=== PATIENT | male | born 1990 | race African-American/Black ===

== ENCOUNTER 2016-09-27 19:01 | Emergency (ER) | payer OTHER ==
[~2016-09-27] VITALS: Ht 185.4 cm; Wt 116.0 kg
[~2016-09-27 19:01] MED LIST: PERM5CRE TOP; Z.0.NO CURRENT MEDS
[2016-09-27 19:03] VITALS: BP_SYST 135; BP_DIAS 7; BP_DIAS 97; PULSE 87; RESP 16; TEMP 98.6; O2SAT 99
[2016-09-27] MEDS ORDERED: PRED1 PO (19:07)
[2016-09-27 21:50] LABS: AUTOMATED NEUTROPHIL # 3.5 TH/MM3 (1.8-7.7); BASOPHIL # 0.1 TH/MM3 (0-0.2); BASOPHIL % 1.2 % (0.0-2.0); EOSINOPHIL # 0.5 TH/MM3 (0-0.4); HEMATOCRIT 43.5 % (39.0-51.0); HEMO FLAGS DIFF FINAL; LYMPH % 38.2 % (9.0-44.0); LYMPHOCYTE # 2.9 TH/MM3 (1.0-4.8); MEAN CELL VOLUME 92.9 FL (80.0-100.0); MEAN CORPUSCULAR HEMOGLOBIN 31.8 PG (27.0-34.0); MEAN CORPUSCULAR HGB CONC 34.2 % (32.0-36.0); MONO % 7.4 % (0.0-8.0); NEUT % 46.2 % (16.0-70.0); PLATELET COUNT 225 TH/MM3 (150-450); RED BLOOD COUNT 4.68 MIL/MM3 (4.50-5.90); RED CELL DISTRIBUTION WIDTH 12.6 % (11.6-17.2); WHITE BLOOD COUNT 7.6 TH/MM3 (4.0-11.0)
[2016-09-27 22:07] LABS: ALT (GPT) 27 U/L (12-78)
[2016-09-27 22:10] LABS: ALKALINE PHOSPHATASE 99 U/L (45-117); TOTAL BILIRUBIN ADULT 0.4 MG/DL (0.2-1.0)
[2016-09-27 22:13] LABS: ANION GAP 8 MEQ/L (5-15); AST (GOT) 26 U/L (15-37); BICARBONATE 25.4 MEQ/L (21.0-32.0); BLOOD UREA NITROGEN 17 MG/DL (7-18); CHLORIDE 106 MEQ/L (98-107); GLOMERULAR FILTRATION RATE 66 ML/MIN (>89); POTASSIUM 4.5 MEQ/L (3.5-5.1); SODIUM (NA) 139 MEQ/L (136-145)
--- NOTE | 2016-09-27 22:34 | PD ---
HPI Chief Complaint: GI Complaint Time Seen by Provider: 20:49 Travel History International Travel<30 days: No Contact w/Intl Traveler<30days: No Traveled to known affect area: No History of Present Illness HPI Patient is a 26-year-old male who comes in complaining of blood in his stool. He says he has had problems with this since high school, for about 8 years. He was seen by a entry level business analyst at one point and had an EGD done that was negative. He was told he was taking too much ibuprofen. He says that his boss told him to come to the emergency department because yesterday when he saw some blood in the stool this made him feel lightheaded. He also complains of years of panic attacks. He has no acute symptoms. He is not having any shortness of breath or chest pain. He does not have any abdominal pain. He denies nausea or vomiting. PFSH Past Medical History Medical History: Denies Significant Hx Cancer: No Diabetes: No Diminished Hearing: No Glaucoma: No Hepatitis: No Hiatal Hernia: No Hypertension: No Immunizations Current: Yes ([facility] STATES RECORDS ARE AT THE HEALTH DEPARTMENT) Thyroid Disease: No Tetanus Vaccination: Unknown Influenza Vaccination: No Past Surgical History Abdominal Surgery: No Cardiac Surgery: No Ear Surgery: No Endocrine Surgery: No Eye Surgery: No Genitourinary Surgery: No Gynecologic Surgery: No Oral Surgery: No Pacemaker: No Thoracic Surgery: No Other Surgery: Yes (HAND SURGERY) Social History Alcohol Use: No Tobacco Use: No Substance Use: No Allergies-Medications (Allergen,Severity, Reaction): Coded Allergies: No Known Allergies (Verified , 09/27/16) Reported Meds & Prescriptions Reported Meds & Active Scripts Active Reported Prednisone 1 Mg Tab 1 Mg PO DAILY Review of Systems Except as stated in HPI: all other systems reviewed are Neg General / Constitutional: No: Fever, Chills Eyes: No: Blurred Vision HENT: No: Headaches Cardiovascular: No: Chest Pain or Discomfort, Palpitations Respiratory: No: Shortness of Breath Gastrointestinal: No: Nausea, Vomiting, Abdominal Pain Skin: No Rash, No Change in Pigmentation Neurologic: No: Weakness, Dizziness Physical Exam Narrative GENERAL: Awake and alert, in no acute distress. SKIN: Focused skin assessment warm/dry. HEAD: Atraumatic. Normocephalic. EYES: Pupils equal and round. No scleral icterus. No conjunctival pallor. ENT: Mucous membranes pink and moist. NECK: Trachea midline. No JVD. CARDIOVASCULAR: Regular rate and rhythm. No murmur appreciated. RESPIRATORY: No accessory muscle use. Clear to auscultation. Breath sounds equal bilaterally. GASTROINTESTINAL: Abdomen soft, non-tender, nondistended. Rectal: Performed in the presence of the nurse. No hemorrhoids. Brown stool, no blood. No tenderness to palpation of the rectum. MUSCULOSKELETAL: No obvious deformities. No clubbing. No cyanosis. No edema. NEUROLOGICAL: Awake and alert. No obvious cranial nerve deficits. Motor grossly within normal limits. Normal speech. PSYCHIATRIC: Appropriate mood and affect; insight and judgment normal. Data Data Last Documented VS Vital Signs Date Time Temp Pulse Resp B/P Pulse Ox O2 Delivery O2 Flow Rate FiO2 09/27/16 19:09 16 09/27/16 19:03 98.6 87 135/97 99 Orders Complete Blood Count With Diff (09/27/16 21:06) Comprehensive Metabolic Panel (09/27/16 21:06) Labs Laboratory Tests Test 09/27/16 21:30 White Blood Count 7.6 TH/MM3 Red Blood Count 4.68 MIL/MM3 Hemoglobin 14.9 GM/DL Hematocrit 43.5 % Mean Corpuscular Volume 92.9 FL Mean Corpuscular Hemoglobin 31.8 PG Mean Corpuscular Hemoglobin 34.2 % Concent Red Cell Distribution Width 12.6 % Platelet Count 225 TH/MM3 Mean Platelet Volume 7.8 FL Neutrophils (%) (Auto) 46.2 % Lymphocytes (%) (Auto) 38.2 % Monocytes (%) (Auto) 7.4 % Eosinophils (%) (Auto) 7.0 % Basophils (%) (Auto) 1.2 % Neutrophils # (Auto) 3.5 TH/MM3 Lymphocytes # (Auto) 2.9 TH/MM3 Monocytes # (Auto) 0.6 TH/MM3 Eosinophils # (Auto) 0.5 TH/MM3 Basophils # (Auto) 0.1 TH/MM3 CBC Comment DIFF FINAL Differential Comment Sodium Level 139 MEQ/L Potassium Level 4.5 MEQ/L Chloride Level 106 MEQ/L Carbon Dioxide Level 25.4 MEQ/L Anion Gap 8 MEQ/L Blood Urea Nitrogen 17 MG/DL Creatinine 1.56 MG/DL Estimat Glomerular Filtration 66 ML/MIN Rate Random Glucose 93 MG/DL Calcium Level 8.8 MG/DL Total Bilirubin 0.4 MG/DL Aspartate Amino Transf 26 U/L (AST/SGOT) Alanine Aminotransferase 27 U/L (ALT/SGPT) Alkaline Phosphatase 99 U/L Total Protein 7.1 GM/DL Albumin 3.6 GM/DL [facility] Medical Decision Making Medical Screen Exam Complete: Yes Emergency Medical Condition: Yes Medical Record Reviewed: Yes Differential Diagnosis Hemorrhoids versus constipation versus anal fissure versus diverticulosis Narrative Course Patient is a 26-year-old male comes in complaining of blood in his stool for 8 years. Exam shows no active bleeding. IV established, labs sent. Hemoglobin is 14.6. Patient does have a creatinine of 1.56 without any to compare to. Patient is advised of this finding. He is advised to avoid NSAIDs. Advised follow-up with her primary care doctor. Advised to increase his fluid intake. Advised follow-up with gastroenterology. Advised to return to the emergency department as needed for any worsening symptoms. [facility] Point of Care Internal Pos. & Neg. Controls: Passed Fecal Specimen Occult Blood: Negative Diagnosis Primary Impression: Constipation Qualified Code: K59.00 - Constipation, unspecified constipation type Referrals: Alan Sanchez MD call for appointment Patient Instructions: Constipation (ED), General Instructions, Rectal Bleeding (ED) Additional Instructions: Your kidney function was slightly decreased today. You're creatinine was found to be 1.56. Need to follow-up with a primary care doctor. He should also follow-up with a entry level business analyst. Drink plenty of fluids. Avoid ibuprofen, Motrin, Advil. Return to the emergency department as needed for any worsening symptoms. Take MiraLAX for constipation. Disposition: 01 DISCHARGE HOME Condition: Stable Denise Allison MD Sep 27, 2016 22:34
== END 2016-09-27 23:47 | disposition home or self-care (01) ==
LOC: NEPD 19:01
DX: K59.00 Constipation, unspecified (principal)
CPT/HCPCS: 80053; 85025; 99283